=== PATIENT | male | born 1995 | race Two or more races ===

== ENCOUNTER 2018-01-14 01:12 | Emergency (ER) | payer SELFPAY ==
[~2018-01-14] VITALS: Ht 167.6 cm; Wt 64.0 kg
[2018-01-14 05:20] VITALS: BP 114/59
== END 2018-01-14 10:15 | disposition home or self-care (01) ==
LOC: EDSEX 01:12 → ER 10:15
DX: B35.6 Tinea cruris (principal)
CPT/HCPCS: 99283; Z7610